=== PATIENT | male | born 1990 | race Two or more races ===

== ENCOUNTER 2022-01-27 18:57 | Emergency (ER) | payer SELFPAY ==
[~2022-01-27] VITALS: Ht 175.3 cm; Wt 74.8 kg
[2022-01-27] MEDS ORDERED: HALOPERIDOL LACTATE 5 MG/ML INJ VIAL IM ONE (19:30)
[2022-01-27] MEDS ORDERED: OLANZapine 5 MG TAB PO ONE (19:30)
[2022-01-27 20:22] LABS: Basophils # (auto) 0 10 ^3/uL (0-0.2); Basophils % (auto) 0.3 % (0.0-2.0); Eosinophils # (auto) 0.3 10 ^3/uL (0-0.8); Eosinophils % (auto) 2.2 % (0.0-7.0); Hematocrit 47.2 % (41.0-53.0); Hemoglobin 16.1 g/dL (13.5-17.5); Lymphocytes # (auto) 2.1 10 ^3/uL (0.4-5.4); Lymphocytes % (auto) 17.2 % (10.0-50.0); Mean Corpuscular Hemoglobin 29.5 pg (28.0-32.0); Mean Corpuscular Volume 86.7 fL (80.0-100.0); Monocytes # (auto) 0.8 10 ^3/uL (0-1.3); Monocytes % (auto) 6.6 % (0.0-12.0); Neutrophils # (auto) 8.8 10 ^3/uL (1.6-8.6); Neutrophils % (auto) 73.7 % (37.0-80.0); Nucleated Red Blood Cells % 0.2 %; Red Blood Cells 5.44 10^6/uL (4.5-5.90); White Blood Cell 11.9 10^3/uL (4.4-10.8)
[2022-01-27 20:39] LABS: Alanine Aminotransferase 38 U/L (16-61); Albumin 4.5 g/dL (3.4-5.0); Anion Gap 11 (5-15); Aspartate Aminotransferase 31 U/L (15-37); BUN/Creatinine Ratio 24.3; Blood Alcohol < 3.0 mg/dL (0-5); Blood Urea Nitrogen 33 mg/dL (7-18); Carbon Dioxide 20 mmol/L (21-32); Chloride 107 mmol/L (98-107); GFR African American 79 mL/min; GFR Non-African American 65 mL/min; Glucose 107 mg/dL (74-106); Potassium 3.4 mmol/L (3.5-5.1); Sodium 138 mmol/L (136-145)
[2022-01-27 20:42] LABS: Alkaline Phosphatase 105 U/L (45-117); Bilirubin, Total 0.8 mg/dL (0.2-1.0); Total Protein 7.8 g/dL (6.4-8.2)
[2022-01-27 21:10] LABS: Salicylate < 1.7 mg/dL (2.8-20.0)
[2022-01-27 21:19] LABS: Acetaminophen < 2.0 ug/mL (10-30)
[2022-01-28 13:10] LABS: Urine Bacteria NONE SEEN /hpf (None Seen); Urine Blood Negative /uL (Negative); Urine Mucus FEW (None Seen); Urine Specific Gravity 1.029 (1.001-1.035); Urine WBC 1 /hpf (0 - 3)
[2022-01-28 13:23] LABS: Alcohol, Urine < 3.0 mg/dL (0-10); Amphetamine Screen, Urine POSITIVE (NEGATIVE); Barbiturate Scree,Urine NEGATIVE (NEGATIVE); Benzodiazephine Screen, Urine NEGATIVE (NEGATIVE); Cannabinoid Screen, Urine POSITIVE (NEGATIVE); Opiate Scree,Urine NEGATIVE (NEGATIVE); Phencyclidine Screen, Urine NEGATIVE (NEGATIVE)
[2022-01-28 13:30] LABS: Cocaine Screen, Urine NEGATIVE (NEGATIVE)
[2022-01-28 15:40] VITALS: BP 105/74
== END 2022-01-28 16:10 | disposition home or self-care (01) ==
LOC: ER 18:57 → EDBD 18:57 → ER 01-28 16:10
DX: F20.9 Schizophrenia, unspecified (principal)
CPT/HCPCS: 36415; 70450; 80053; 80307; 80320; 80329; 81001; 85025; 93005